=== PATIENT | male | born 1995 | race Caucasian/White ===

== ENCOUNTER 2016-10-07 03:01 | Emergency (ER) | payer SELFPAY ==
[2016-10-07 03:39] VITALS: RESP 18; TEMP 97.9
[2016-10-07] MEDS ORDERED: SKIN ADHESIVE (DERMABOND) 1 EACH TP ONE (04:07)
--- NOTE | 2016-10-07 04:23 | EDPHY ---
H & P Stated Complaint: forearm laceration Time Seen by Provider: 10/07/16 03:34 HPI/ROS: HPI The patient presents with right forearm laceration which was sustained just prior to arrival. The patient had been drinking alcohol tonight and possibly using benzodiazepines as well. He was with his friend and girlfriend and was doing something in the kitchen and accidentally cut his forearm with a knife. He is not exactly clear on all of the details. He says he was not trying to do this to hurt himself in any way. He does have some superficial lacerations of his opposite forearm which he sustained 1-2 weeks ago when he cut himself. He said he did this because his sister had cut herself and he was doing this to show how much he was saddened by her actions. He denies any current suicidality or homicidality. REVIEW OF SYSTEMS Constitutional: No fever, no chills. Eyes: No discharge. ENT: No sore throat. Cardiovascular: No chest pain, no palpitations. Respiratory: No cough, no shortness of breath. Gastrointestinal: No abdominal pain, no vomiting. Genitourinary: No hematuria. Musculoskeletal: No back pain. Skin: No rashes. Neurological: No headache. PMHx: Attention deficit hyperactivity disorder, sees a psychiatrist awa Hernandez (bianca?) Soc Hx: He is a college student, uses alcohol occasionally PHYSICAL General Appearance: Alert, no distress Eyes: Pupils equal and round no pallor or injection ENT, Mouth: Mucous membranes moist Respiratory: There are no retractions, lungs are clear to auscultation Cardiovascular: Regular rate and rhythm, 2+ radial pulses Gastrointestinal: Abdomen is soft and non-tender, no masses, bowel sounds normal Neurological: A&O, 5/5 strength in his upper extremities, sensation is intact in median, ulnar, radial nerve distributions throughout his hand Skin: Warm and dry, no rashes Musculoskeletal: Neck is supple non tender Extremities: Right anterior forearm with 6 cm laceration initially with active oozing, after pressure dressing is applied there is no active ongoing bleeding, the wound is gaping Psychiatric: Patient is oriented X 3, there is no agitation Source: Patient - Personal History Current Tetanus/Diphtheria Vaccine: Yes Current Tetanus Diphtheria and Acellular Pertussis (TDAP): Yes - Medical/Surgical History Hx Asthma: No Hx Chronic Respiratory Disease: No Hx Diabetes: No Hx Cardiac Disease: No Hx Renal Disease: No Hx Cirrhosis: No Hx Alcoholism: No Hx HIV/AIDS: No Hx Splenectomy or Spleen Trauma: No Other PMH: denies - Social History Smoking Status: Current every day smoker Constitutional: Initial Vital Signs Temperature (C) 36.6 C 10/07/16 03:24 Heart Rate 86 10/07/16 03:24 Respiratory Rate 18 10/07/16 03:24 Blood Pressure 124/81 H 10/07/16 03:24 O2 Sat (%) 94 10/07/16 03:24 O2 Delivery Mode Room Air Allergies/Adverse Reactions: No Known Allergies Allergy (Unverified 10/07/16 03:18) Home Medications: Medication Instructions Recorded FOCALIN 10/07/16 Vyvanse 10/07/16 Medical Decision Making Procedures: LACERATION REPAIR Procedure: Laceration repair. Verbal consent was obtained from the patient. The linear 6 cm laceration on the anterior right forearm was anesthetized using lidocaine with epinephrine. The wound was scrubbed, draped and explored to its base with a gloved finger. There were no deep structures involved. No tendon injury was identified. . The wound was repaired with Prolene 3. 0 horizontal mattress sutures. The wound repair was simple. The procedure was performed by myself. Differential Diagnosis: This is a 21-year-old college student who presents after an injury to his right forearm. It is unclear if it is self-inflicted or accidental. However on questioning, he denies any suicidal ideations. He was drinking tonight and using benzodiazepines and I feel this may have contributed to this injury. Differential diagnosis includes forearm laceration, arterial injury, venous injury, tendon injury. In the emergency room, his wound was closed by myself. I talked to his mother on the phone and expressed my concerns about his behavior. She is aware of what is going on. We agreed that he should have follow-up with his local psychiatrist. He is interested in coming home for a semester possibly she will be in touch with him closely over the next few days. I feel he is safe for discharge. We have discussed wound care. Departure - Departure Disposition: Home, Routine, Self-Care Clinical Impression: Laceration Condition: Good Instructions: Care For Your Stitches (ED), Laceration (ED) Additional Instructions: YOUR STITCHES SHOULD BE REMOVED ON SATURDAY BEFORE YOU LEAVE FOR spring. YOU CAN RETURN TO THE EMERGENCY ROOM TO HAVE THEM TAKEN OUT. PLEASE RETURN IF YOUR FEELING UNSAFE IN ANY WAY OR IF YOU FEEL LIKE HURTING HERSELF. YOU SHOULD WATCH FOR ANY REDNESS, SWELLING, DRAINAGE FROM YOUR WOUND. PLEASE FOLLOW -UP WITH THE DOCTOR WHO SEES YOU FOR ATTENTION DEFICIT HYPERACTIVITY DISORDER WITHIN THE NEXT FEW DAYS. Referrals: [facility] [Outside] - As per Instructions
[2016-10-07 04:31] VITALS: BP 113/82; PULSE 97; O2SAT 96
== END 2016-10-11 18:19 | disposition home or self-care (01) ==
PROC: 0HQDXZZ Repair Right Lower Arm Skin, External Approach (ICD-10-PCS; principal; 2016-10-07)
DX: S51.811A Laceration without foreign body of right forearm, initial encounter (principal); F17.200 Nicotine dependence, unspecified, uncomplicated; W26.0XXA Contact with knife, initial encounter; Y92.000 Kitchen of unspecified non-institutional (private) residence as the place of occurrence of the external cause; Y99.8 Other external cause status; Y93.89 Activity, other specified